=== PATIENT | female | born 1990 | race Asian ===

== ENCOUNTER 2021-05-10 07:51 | Emergency (ER) | payer MEDICAID ==
[~2021-05-10] VITALS: Ht 165.1 cm; Wt 57.2 kg
[~2021-05-10 07:51] MED LIST: LEVO50TA PO
--- NOTE | 2021-05-10 08:00 | NUR ---
Patient bibra from home, c/o abd pain and Hx kidney stone. on room air, breathing evenly and unlabored. connected to the monitor and pulse ox. Kept comfortable, will continue to monitor accordingly.
--- NOTE | 2021-05-10 08:05 | NUR ---
IV started and blood drawned and sent to lab.
[2021-05-10 08:15] LABS: BASOPHILS % (AUTO) 0.2 % (0.0-2.0); EOSINOPHILS % (AUTO) 0.1 % (0.0-6.0); HEMATOCRIT 41 % (33-45); HEMOGLOBIN 13.7 g/dL (11.5-14.8); LYMPHOCYTES # (AUTO) 1.1 K/uL (0.8-4.8); LYMPHOCYTES % (AUTO) 5.4 % (20.0-44.0); MEAN CORPUSCULAR HGB CONC 33 g/dl (31.0-36.0); MEAN CORPUSCULAR VOLUME 98 fL (82-100); MONOCYTES # (AUTO) 1.1 K/uL (0.1-1.30); MONOCYTES % (AUTO) 5.4 % (2.0-12.0); NEUTROPHILS # (AUTO) 17.5 K/uL (1.8-8.9); NEUTROPHILS % (AUTO) 88.9 % (43.0-81.0); PLATELET COUNT (AUTO) 249 K/uL (150-450); RED BLOOD CELL COUNT(AUTO) 4.22 MIL/uL (4.0-5.2); WHITE BLOOD COUNT (AUTO) 19.7 K/uL (4.3-11.0)
[2021-05-10 08:22] LABS: BILIRUBIN,URINE Negative (NEGATIVE); COLOR,URINE YELLOW (YELLOW); LEUKOCYTE ESTERASE ,URINE Small (NEGATIVE); NITRITE, URINE Negative (NEGATIVE); PROTEIN,URINE Trace mg/dl (NEGATIVE); UGLUCOSE Negative (NEGATIVE)
[2021-05-10 08:30] LABS: BACTERIA,URINE 1+ /HPF (None Seen); SQUAMOUS EPITHELIAL CELL,UR Few /HPF (None Seen)
[2021-05-10 08:44] LABS: ALBUMIN 3.8 g/dL (3.4-5.0); BILIRUBIN,DIRECT 0.2 mg/dL (0.0-0.2); BILIRUBIN,TOTAL 0.9 mg/dL (0.2-1.0); CALCIUM, SERUM 8.7 mg/dL (8.5-10.1); CREATININE 1.3 mg/dL (0.6-1.3); POTASSIUM 3.6 mmol/L (3.5-5.1); TOTAL PROTEIN, SERUM 7.7 g/dL (6.4-8.2)
[2021-05-10] MEDS ORDERED: ONDANSETRON HCL/PF 4 MG/2 ML VIAL ONE (08:46)
[2021-05-10] MEDS ORDERED: MORPHINE SULFATE INJ 4 MG/ML DISP.SYRIN ONE (08:47)
[2021-05-10] MEDS ORDERED: MORPHINE SULFATE INJ 2 MG/ML DISP.SYRIN IV ONE (09:00)
[2021-05-10] MEDS ORDERED: ONDANSETRON HCL/PF - ER 4 MG/2 ML VIAL IV ONE (09:00)
--- NOTE | 2021-05-10 09:00 | NUR ---
wheeled patient to ct accompanied by rosi.
--- NOTE | 2021-05-10 09:05 | NUR ---
patient came back from ct.
--- NOTE | 2021-05-10 09:36 | NUR ---
PAGED UROLOGY ROLLER TURNER, DR. RIDDLE
--- NOTE | 2021-05-10 09:57 | NUR ---
DR. RIDDLE PAGED AGAIN.
--- NOTE | 2021-05-10 10:11 | NUR ---
covid swab collected and sent to lab.
--- NOTE | 2021-05-10 10:15 | NUR ---
CALLED [facility] FOR TRANSFER AND THEY ARE CLOSED FOR CAPACITY
--- NOTE | 2021-05-10 10:18 | NUR ---
CALLED [facility] FOR TRANSFER REQUEST. THEY WILL ACCEPT IT.
[2021-05-10] MEDS ORDERED: HYDROMORPHONE 1 MG/1 ML DISP.SYRIN IV ONE (10:30)
[2021-05-10] MEDS ORDERED: CEFTRIAXONE 1 G in IV D5W 50 ML IV ONE (10:30)
[2021-05-10] MEDS ORDERED: CEFTRIAXONE 1GM BAG (ER ONLY) 50 ML IV ONE (10:34)
[2021-05-10] MEDS ORDERED: HYDROMORPHONE 1 MG/1 ML DISP.SYRIN ONE ×2 (10:34→19:57)
--- NOTE | 2021-05-10 10:34 | NUR ---
FAXED [facility], [place] AT [phone]
--- NOTE | 2021-05-10 10:43 | NUR ---
PAGED IR ANIMAL [employer]USBAN[employer]Y TE[employer]ER DR. STEPHENS. WAITING FOR CALL BACK.
--- NOTE | 2021-05-10 11:02 | NUR ---
FOLLOWED UP WITH [facility]. THEY RECEIVED THE FAX
--- NOTE | 2021-05-10 11:20 | NUR ---
MOON SPOKE TO DR. HARMAN AT [facility]. WAITING FOR ACCEPTANCE FROM MEDICAL TEAM.
[2021-05-10] MEDS ORDERED: IV NS 0.9% 1,000 ML BAG IV ONE (12:00)
--- NOTE | 2021-05-10 14:23 | NUR ---
Note connie in EDM - 05/10/21 at 1425 by MARIA ISABEL FOLLOWED UP WITH [facility]. ACCEPTED AND PT IS PENDING PLACEMENT. ER IS FULLY SATURATED. WILL CALL BACK WHEN BED OPENS.
--- NOTE | 2021-05-10 14:25 | NUR ---
FOLLOWED UP WITH [facility]. ACCEPTED AND PT IS PENDING PLACEMENT. ER IS FULLY SATURATED. WILL CALL BACK WHEN BED OPENS.
--- NOTE | 2021-05-10 14:29 | NUR ---
CALLED [facility] BUT NO UROLOGY PANEL
--- NOTE | 2021-05-10 14:32 | NUR ---
CALLED [facility] BUT UNABLE TO ACCEPT BECAUSE THEY ARE AT FULL CAPACITY
--- NOTE | 2021-05-10 14:36 | NUR ---
[facility] UNABLE TO ACCEPT REQUEST BECAUSE IR IS NOT CALL ON THE WEEKENDS
--- NOTE | 2021-05-10 16:01 | NUR ---
CALLED [facility] 2 TIMES BUT NO ANSWER ON THE TRANSFER LINE
--- NOTE | 2021-05-10 16:09 | NUR ---
CALLED [facility]. HAVE NEW NUMBER FOR TRANSFER LINE. IT IS [phone]
--- NOTE | 2021-05-10 16:13 | NUR ---
FAXED CLINICALS AND FACESHEET TO [facility]. FAX NUMBER IS [phone]
--- NOTE | 2021-05-10 16:45 | NUR ---
[facility] CALLED BACK. SPOKE WITH RICHARD WHO STATES THAT PT IS CAPITATED AT [facility] AND NEEDS AUTH BEFORE ACCEPTING PT. PHONE NUMBER IS [phone]
--- NOTE | 2021-05-10 17:25 | NUR ---
CALLED [facility] BUT STATED THAT PT TRANSFERS GO THROUGH [facility]. ALREADY CALLED [facility]. THEY ARE AT CAPACITY
--- NOTE | 2021-05-10 18:53 | NUR ---
FAXED FACESHEET AND IMAGING TO [facility]. TRYING TO GET AUTH NUMBER FROM THEM SO [facility] CAN ACCEPT PT
--- NOTE | 2021-05-10 20:00 | NUR ---
ER MD ORDER FOR DILAUDID INJ 0.5 MG ADMINISTERED TO PATIENT, VSS.
--- NOTE | 2021-05-10 20:47 | NUR ---
PER [facility], AT FULL CAPACITY. NO BEDS AVAILABLE SPOKE TO WENDY TOLENTINO, CASE#[id number]
--- NOTE | 2021-05-10 20:53 | NUR ---
per Aundrea at [facility], [facility] does not have capabilty to do the surgery that pt needs. Cannot accept pt
--- NOTE | 2021-05-10 21:19 | NUR ---
Transfer info: [facility] [address], [place], [address]. call report [phone]. Going to room 320 3 [facility]. Call nerissa at transfer center when ambulance arrives at [phone].
--- NOTE | 2021-05-10 21:29 | NUR ---
[facility] eta 90min
--- NOTE | 2021-05-10 22:20 | NUR ---
REPORT GIVEN TO NURSE SHARMA AT [facility]
--- NOTE | 2021-05-11 00:24 | NUR ---
called [facility], per dispatcher "crews are delayed in other emergency rooms"
--- NOTE | 2021-05-11 01:19 | NUR ---
[facility] eta 25min
--- NOTE | 2021-05-11 02:07 | NUR ---
REPORT GIVEN TO EMS FOR PATIENT TRANSFER
[2021-05-11 03:00] VITALS: BP 105/59
== END 2021-05-11 03:01 | disposition short-term general hospital (02) ==
LOC: ER 07:52
DX: N13.2 Hydronephrosis with renal and ureteral calculous obstruction (principal); Z97.5 Presence of (intrauterine) contraceptive device; Z87.442 Personal history of urinary calculi; Z20.822 Contact with and (suspected) exposure to COVID-19; I10 Essential (primary) hypertension
CPT/HCPCS: 36415; 74176; 76770; 80048; 80076; 81001; 83605; 83690; 84703; 85025; 87040 ×2; 87426; 96361; 96365; 96375; 99285; C9803; J0696; J1170 ×2; J2270; J2405; J7030; J7040; J7060

== ENCOUNTER 2021-06-22 19:06 | Emergency (ER) | payer MEDICAID ==
[~2021-06-22] VITALS: Ht 160 cm; Wt 54.4 kg
--- NOTE | 2021-06-22 21:05 | NUR ---
pt bib , c/o flank pain. pt worried about her nephrostomy tube, to r/o infection. upon assessment, site appears with green discharge. md aware. will cont to monitor
[2021-06-22] MEDS ORDERED: MORPHINE SULFATE INJ 2 MG/ML DISP.SYRIN IV ONE (21:30)
[2021-06-22] MEDS ORDERED: IV NS 0.9% 1,000 ML BAG IV ONE (21:30)
[2021-06-22] MEDS ORDERED: ONDANSETRON HCL/PF 4 MG/2 ML VIAL IVP ONE (21:30)
[2021-06-22 21:39] LABS: BASOPHILS % (AUTO) 0.7 % (0.0-2.0); EOSINOPHILS % (AUTO) 2.6 % (0.0-6.0); HEMATOCRIT 38 % (33-45); HEMOGLOBIN 12.7 g/dL (11.5-14.8); LYMPHOCYTES # (AUTO) 2.8 K/uL (0.8-4.8); LYMPHOCYTES % (AUTO) 44.2 % (20.0-44.0); MEAN CORPUSCULAR HGB CONC 33 g/dl (31.0-36.0); MEAN CORPUSCULAR VOLUME 98 fL (82-100); MONOCYTES # (AUTO) 0.5 K/uL (0.1-1.30); MONOCYTES % (AUTO) 7.4 % (2.0-12.0); NEUTROPHILS # (AUTO) 2.9 K/uL (1.8-8.9); NEUTROPHILS % (AUTO) 45.1 % (43.0-81.0); PLATELET COUNT (AUTO) 315 K/uL (150-450); RED BLOOD CELL COUNT(AUTO) 3.89 MIL/uL (4.0-5.2); WHITE BLOOD COUNT (AUTO) 6.4 K/uL (4.3-11.0)
[2021-06-22] MEDS ORDERED: ONDANSETRON HCL/PF 4 MG/2 ML VIAL ONE ×2 (21:46→21:48)
[2021-06-22] MEDS ORDERED: MORPHINE SULFATE INJ 2 MG/ML DISP.SYRIN ONE (21:47)
[2021-06-22 21:50] LABS: CALCIUM, SERUM 8.4 mg/dL (8.5-10.1); CREATININE 1.4 mg/dL (0.6-1.3); POTASSIUM 3.6 mmol/L (3.5-5.1)
[2021-06-22 21:56] LABS: ALBUMIN 3.7 g/dL (3.4-5.0); BILIRUBIN,DIRECT 0.1 mg/dL (0.0-0.2); BILIRUBIN,TOTAL 0.3 mg/dL (0.2-1.0); TOTAL PROTEIN, SERUM 7.6 g/dL (6.4-8.2)
--- NOTE | 2021-06-22 22:05 | NUR ---
URINE COLLECTED, SENT
[2021-06-22 22:22] LABS: BILIRUBIN,URINE NEGATIVE (NEGATIVE); COLOR,URINE YELLOW (YELLOW); LEUKOCYTE ESTERASE ,URINE LARGE (NEGATIVE); NITRITE, URINE POSITIVE (NEGATIVE); PH,URINE 6.5 (5.0-8.0); PROTEIN,URINE NEGATIVE (NEGATIVE); UGLUCOSE NEGATIVE (NEGATIVE); UROBILINOGEN,URINE 0.2 EU/dL (0.2)
[2021-06-22 22:53] LABS: BACTERIA,URINE Many /HPF (None Seen); SQUAMOUS EPITHELIAL CELL,UR Few /HPF (None Seen); WBC,URINE 51-80 /HPF (0-3)
[2021-06-22 22:54] LABS: URINE AMORPHOUS URATE Few /HPF (None Seen)
--- NOTE | 2021-06-22 23:46 | NUR ---
UROLOGY AT [facility] WAS PAGED. PANEL CALL IN PROGRESS.
[2021-06-23] MEDS ORDERED: SULFAMETH/TRIMETH 800/160 MG 1 UDTAB TABLET PO ONE
[2021-06-23] MEDS ORDERED: SULFAMETH/TRIMETH 800/160 MG 1 UDTAB TABLET ONE (00:08)
[2021-06-23] MEDS ORDERED: SULF1TAB48 PO (00:18)
[2021-06-23] MEDS ORDERED: TRAM50TA2 PO (00:18)
[2021-06-23 00:44] VITALS: BP 116/75
--- NOTE | 2021-06-23 00:46 | NUR ---
Patient discharged to home in stable condition. Written and verbal after care instructions given. Patient verbalizes understanding of instruction. IV removed. Catheter intact and site benign. Pressure and 4x4 applied to site. No bleeding noted. nephrostomy tube site cleansed and secured with gauze. cap provided for end of nephrostomy bag.
== END 2021-06-23 00:38 | disposition home or self-care (01) ==
LOC: ER 19:08
DX: N39.0 Urinary tract infection, site not specified (principal); Z93.6 Other artificial openings of urinary tract status; I10 Essential (primary) hypertension; E03.9 Hypothyroidism, unspecified; Z79.899 Other long term (current) drug therapy
CPT/HCPCS: 36415; 80048; 80076; 81001; 84703; 85025; 87086; 96361; 96374; 96375; 99284; J2270; J2405 ×2; J7030